=== PATIENT | male | born 1975 ===

== ENCOUNTER 2018-11-13 12:23 | Emergency (ER) | payer OTHER ==
[~2018-11-13] VITALS: Ht 188 cm; Wt 131.5 kg
[~2018-11-13 12:23] MED LIST: CEPH500 PO; SULTRIDS PO
[2018-11-13 13:02] LABS: BASOPHILS ABSOLUTE AUTO 0.06 K/mm3 (0.00-0.23); BASOPHILS PERCENT AUTO 1 % (0-2); EOSINOPHILS ABSOLUTE AUTO 0.14 K/mm3 (0.00-0.68); EOSINOPHILS PERCENT AUTO 2 % (0-6); Hematocrit 43.5 % (37.0-53.0); Hemoglobin 15.2 g/dL (13.5-17.5); IMMATURE GRAN ABSOLUTE AUTO 0.03 K/mm3 (0.00-0.10); IMMATURE GRAN PERCENT AUTO 1 % (0-1); LYMPHOCYTES ABSOLUTE AUTO 2.21 K/mm3 (0.84-5.20); LYMPHOCYTES PERCENT AUTO 34 % (21-46); MONOCYTES PERCENT AUTO 12 % (4-13); Mean Corpuscular HGB 31.8 pg (26.0-34.0); Mean Corpuscular HGB Conc 34.9 g/dL (31.5-36.5); Mean Corpuscular Volume 91 fL (80-100); Mean Platelet Volume 10.7 fL (9.1-12.4); NEUTROPHILS ABSOLUTE AUTO 3.22 K/mm3 (1.96-9.15); NEUTROPHILS PERCENT AUTO 50 % (41-73); Platelet Count 246 K/mm3 (150-400); RDW Coefficient Variation 12.7 % (11.7-14.2); RDW Standard Deviation 41.9 fL (35.1-46.3); Red Blood Cell Count 4.78 M/mm3 (4.30-5.90); White Blood Cell Count 6.46 K/mm3 (4.00-11.30)
[2018-11-13 13:23] LABS: Alanine Aminotransfer (ALT/SGP 104 U/L (12-78); Albumin, Blood 4.3 g/dL (3.4-5.0); Albumin/Globulin Ratio 1.2 (0.8-1.8); Alk Phos 61 U/L (50-136); Anion Gap 6 mmol/L (6-16); Aspartate Aminotrans (AST/SGOT 54 U/L (12-37); Bilirubin, Total 0.4 mg/dL (0.1-1.0); Blood Urea Nitrogen 12 mg/dL (8-24); Bun/Creatinine Ratio 17.2 (12.0-20.0); CO2, Blood 26 mmol/L (21-32); Calcium, Blood 8.7 mg/dL (8.5-10.1); Chloride, Blood 108 mmol/L (98-108); Globulin, Blood 3.6 g/dL (2.2-4.0); Glomerular Filtration Rate >60 (60-); Glucose, Blood 95 mg/dL (70-99); Potassium, Blood 4.2 mmol/L (3.5-5.5); Sodium, Blood 140 mmol/L (136-145); Total Protein, Blood 7.9 g/dL (6.4-8.2); Troponin I <0.015 ng/mL (0.000-0.040)
[2018-11-13] MEDS ORDERED: CYCL10 PO (13:37)
[2018-11-13] MEDS ORDERED: ALBU90OI INH (13:37)
== END 2018-11-13 13:59 | disposition home or self-care (01) ==
LOC: ER 12:23
PROVIDERS: Physician Assistant
DX: R06.02 Shortness of breath (principal); R07.89 Other chest pain
CPT/HCPCS: 36415; 80053; 84484; 85025; 93005; 93010; 99284-25

== ENCOUNTER 2020-06-03 16:46 | Emergency (ER) | payer OTHER ==
[~2020-06-03] VITALS: Ht 188 cm; Wt 136.1 kg
[~2020-06-03 16:46] MED LIST changes: +ALBU90OI INH; +CYCL10 PO
== END 2020-06-03 17:39 | disposition home or self-care (01) ==
LOC: ER 16:46
DX: L91.8 Other hypertrophic disorders of the skin (principal)
CPT/HCPCS: 99282

== ENCOUNTER 2020-07-03 16:19 | Emergency (ER) | payer OTHER ==
[~2020-07-03] VITALS: Ht 188 cm; Wt 136.1 kg
== END 2020-07-03 16:37 | disposition home or self-care (01) ==
LOC: ER 16:19
DX: L91.8 Other hypertrophic disorders of the skin (principal); Z53.20 Procedure and treatment not carried out because of patient's decision for unspecified reasons
CPT/HCPCS: 99283

== ENCOUNTER 2021-04-01 05:46 | Emergency (ER) | payer OTHER ==
[~2021-04-01] VITALS: Ht 177.8 cm; Wt 99.8 kg
== END 2021-04-01 11:02 | disposition home or self-care (01) ==
LOC: ER 05:46
DX: F10.129 Alcohol abuse with intoxication, unspecified (principal); S00.81XA Abrasion of other part of head, initial encounter; F17.200 Nicotine dependence, unspecified, uncomplicated; X58.XXXA Exposure to other specified factors, initial encounter
CPT/HCPCS: 99284

== ENCOUNTER 2021-05-18 19:41 | Emergency (ER) | payer OTHER ==
[~2021-05-18] VITALS: Ht 188 cm; Wt 136.1 kg
== END 2021-05-18 21:43 | disposition home or self-care (01) ==
LOC: ER 19:41
DX: G89.29 Other chronic pain (principal); M54.50 Low back pain, unspecified; Z59.00 Homelessness unspecified; F17.200 Nicotine dependence, unspecified, uncomplicated
CPT/HCPCS: 99283; A9270

== ENCOUNTER 2021-06-12 08:44 | Emergency (ER) | payer OTHER ==
[~2021-06-12] VITALS: Ht 188 cm; Wt 136.1 kg
[2021-12-26] MEDS ORDERED: CLIN300 PO (04:57)
== END 2021-06-12 10:02 | disposition home or self-care (01) ==
LOC: ER 08:44
DX: M79.651 Pain in right thigh (principal); M79.671 Pain in right foot; F17.200 Nicotine dependence, unspecified, uncomplicated
CPT/HCPCS: 99283

== ENCOUNTER 2024-06-04 03:16 | Emergency (ER) | payer OTHER ==
[~2024-06-04 03:16] MED LIST changes: +CLIN300 PO
== END 2024-06-04 03:38 | disposition left against medical advice (07) ==
LOC: ER 03:16
DX: F29 Unspecified psychosis not due to a substance or known physiological condition (principal); Z53.21 Procedure and treatment not carried out due to patient leaving prior to being seen by health care provider